=== PATIENT | female | born 1985 ===

== ENCOUNTER 2018-12-07 10:55 | Inpatient (IN) | payer OTHER ==
[~2018-12-07] VITALS: Ht 170.2 cm; Wt 104.3 kg
[2019-01-02] MEDS ORDERED: PRENATAL TABLE1 EAC1 PO (16:09)
== END 2019-01-05 12:15 | disposition home or self-care (01) | DRG 788 ==
LOC: LDR 01-02 12:25 → OB/GYN 01-02 12:25 → LDR 01-02 14:58 → OB/GYN 01-03 06:27
PROVIDERS: ADMIT Obstetrics & Gynecology
PROC: 4A1HXCZ Monitoring of Products of Conception, Cardiac Rate, External Approach (ICD-10-PCS; 2019-01-02)
PROC: 4A033R1 Measurement of Arterial Saturation, Peripheral, Percutaneous Approach (ICD-10-PCS; 2019-01-02)
PROC: 10D00Z1 Extraction of Products of Conception, Low, Open Approach (ICD-10-PCS; principal; 2019-01-02 18:00)
DX: O62.0 Primary inadequate contractions (principal); Z3A.39 39 weeks gestation of pregnancy; Z37.0 Single live birth

== ENCOUNTER 2018-12-26 14:00 | Outpatient (CLI) | payer OTHER | END 2018-12-26 16:36 | disposition HB | LOC: NST 14:00 | DX: Z34.83 Encounter for supervision of other normal pregnancy, third trimester (principal) ==

== ENCOUNTER 2019-01-10 15:00 | Outpatient (CLI) | payer OTHER ==
[~2019-01-10 15:00] MED LIST: PRENATAL TABLE1 EAC1 PO
== END 2019-01-10 15:11 | disposition home or self-care (01) ==
LOC: LAB 15:00
DX: I26.99 Other pulmonary embolism without acute cor pulmonale (principal); Z51.81 Encounter for therapeutic drug level monitoring

== ENCOUNTER 2019-01-11 09:08 | Outpatient (CLI) | payer OTHER | END 2019-01-11 09:14 | disposition home or self-care (01) | LOC: TOM 09:08 | DX: I26.99 Other pulmonary embolism without acute cor pulmonale (principal) ==

== ENCOUNTER 2023-09-05 13:10 | Inpatient (IN) | payer OTHER ==
[~2023-09-05] VITALS: Ht 167.6 cm; Wt 3.6 kg
[2023-09-12 12:57] LABS: HEMATOCRIT 30.4 % (36.0-45.00); MEAN CELL VOLUME 79.9 fL (80.00-100.00); MEAN CORPUSCULAR HEMOGLOBIN 26.2 pg (27.00-32.0); MEAN CORPUSCULAR HGB CONC 32.8 g/dl (32.0-36.0); PLATELET COUNT 231 K/uL (150-450)
[2023-09-12 13:20] LABS: INR < 0.93; PARTIAL THROMBOPLASTIN TIME 27.7 SECONDS (22.0-34.0); PROTHROMBIN TIME 9.8 SECONDS (9.0-11.5)
[2023-09-12 13:27] LABS: ALBUMIN 2.2 gm/dL (3.4-5.0); BILIRUBIN TOTAL 0.35 mg/dL (0.3-1.2); CALCIUM 8.2 mg/dL (8.5-10.1); CREATININE SERUM 0.61 mg/dL (0.55-1.02); GFR 109.19; GLOBULINA 3.8 G/DL (2.4-3.5); POTASSIUM 3.84 mEq/L (3.5-5.1)
[2023-09-20 11:50] LABS: HEMATOCRIT 31.2 % (36.0-45.00); HEMOGLOBIN 10.6 g/dL (12.0-15.00); MEAN CELL VOLUME 77.6 fL (80.00-100.00); MEAN CORPUSCULAR HEMOGLOBIN 26.3 pg (27.00-32.0); MEAN CORPUSCULAR HGB CONC 33.9 g/dl (32.0-36.0); PLATELET COUNT 221 K/uL (150-450); RED BLOOD COUNT 4.01 M/uL (4.00-6.00); RED CELL DISTRIBUTION WIDTH 16.1 % (11.5-14.5)
== END 2023-09-22 13:11 | disposition home or self-care (01) | DRG 788 ==
LOC: LDR 13:10 → OB/GYN 09-19 11:31
PROVIDERS: Obstetrics & Gynecology; ADMIT Obstetrics & Gynecology Maternal & Fetal Medicine; ATTEND Obstetrics & Gynecology Maternal & Fetal Medicine
PROC: 4A1HXCZ Monitoring of Products of Conception, Cardiac Rate, External Approach (ICD-10-PCS; 2023-09-19)
PROC: 10D00Z1 Extraction of Products of Conception, Low, Open Approach (ICD-10-PCS; principal; 2023-09-19 14:30)
DX: O34.211 Maternal care for low transverse scar from previous cesarean delivery (principal); Z3A.39 39 weeks gestation of pregnancy; Z37.0 Single live birth; Z20.822 Contact with and (suspected) exposure to COVID-19